=== PATIENT | female | born 1960 | race Caucasian/White ===

== ENCOUNTER → 2016-12-23 | Outpatient (CLI) | payer OTHER ==
[~2016-12-23] MED LIST: ASPIRIN EC81 MG PO; CARDIZEM CD180 MG PO; CYTOTEC200 MCG PO; DICLOFENAC SODI75 MG PO; DULCOLAX5 MG PO; FEOSOL325 MG PO; FLEXERIL 10 MG10 MG PO; GAVILYTE-C SO4000 ML PO; IMDUR ER TAB 3030 MG PO; KLONOPIN TAB 00.5 MG PO; LIPITOR TAB 2020 MG PO; LOPRESSOR 50 MG50 MG PO; LORTAB 7.5-3251 EACH PO; MILK OF MA400 MG/5 M PO; MIRALAX17 GM PO; NEURONTIN 300300 MG PO; NORVASC 5 MG TAB5 MG PO; PLAVIX 75 MG TA75 MG PO; PROTONIX 40 MG40 M1 PO; TENORMIN 50 MG50 MG PO; UNITHROID50 MCG PO; VOLTAREN EC 2525 MG PO
== END ==
LOC: HEART CORB 10:30
DX: R07.2 Precordial pain (principal); R06.02 Shortness of breath
CPT/HCPCS: 78452; A9502; J0280; J2785

== ENCOUNTER 2017-02-03 06:44 | Inpatient (IN) | payer OTHER ==
[~2017-02-03] VITALS: Ht 170.2 cm; Wt 103.2 kg
[2017-02-03] MEDS ORDERED: TENORMIN 50 MG50 MG PO (07:10)
[2017-02-03] MEDS ORDERED: NORVASC 5 MG TAB5 MG PO (07:10)
[2017-02-03] MEDS ORDERED: ASPIRIN EC81 MG PO (07:10)
[2017-02-03] MEDS ORDERED: LIPITOR TAB 2020 MG PO (07:11)
[2017-02-03] MEDS ORDERED: KLONOPIN TAB 00.5 MG PO (07:12)
[2017-02-03] MEDS ORDERED: FLEXERIL 10 MG10 MG PO (07:12)
[2017-02-03] MEDS ORDERED: CYTOTEC200 MCG PO (07:13)
[2017-02-03] MEDS ORDERED: DICLOFENAC SODI75 MG PO (07:14)
[2017-02-03] MEDS ORDERED: NEURONTIN 300300 MG PO (07:14)
[2017-02-03] MEDS ORDERED: UNITHROID50 MCG PO (07:15)
[2017-02-03] MEDS ORDERED: PROTONIX 40 MG40 M1 PO (07:15)
[2017-02-03] MEDS ORDERED: LORTAB 7.5-3251 EACH PO (07:15)
[2017-02-03] MEDS ORDERED: IMDUR ER TAB 3030 MG PO (07:15)
[2017-02-03] MEDS ORDERED: FEOSOL325 MG PO (07:16)
[2017-02-03] MEDS ORDERED: DULCOLAX5 MG PO (07:16)
[2017-02-03] MEDS ORDERED: MIRALAX17 GM PO (07:17)
[2017-02-03] MEDS ORDERED: GAVILYTE-C SO4000 ML PO (07:17)
[2017-02-03] MEDS ORDERED: MILK OF MA400 MG/5 M PO (07:17)
[2017-02-03 07:27] LABS: HEMOGLOBIN 12.3 gm/dl (12.3-15.3); RED BLOOD COUNT 4.03 M/UL (4.00-5.10); WHITE BLOOD COUNT 9.7 K/UL (4.5-11.0)
[2017-02-03 07:33] LABS: BUN/CREATININE RATIO 40 (0-10)
[2017-02-04] MEDS ORDERED: PLAVIX 75 MG TA75 MG PO (10:23)
[2017-03-17] MEDS ORDERED: VOLTAREN EC 2525 MG PO (10:38)
[2017-03-18] MEDS ORDERED: CARDIZEM CD180 MG PO (10:32)
[2017-03-18] MEDS ORDERED: LOPRESSOR 50 MG50 MG PO (10:33)
== END 2017-02-04 10:00 | disposition home or self-care (01) | DRG 247 ==
LOC: CATH 06:44 → PROG CARE 10:30 → CATH 10:33 → PROG CARE 10:33
PROVIDERS: ADMIT Internal Medicine
PROC: 027034Z Dilation of Coronary Artery, One Artery with Drug-eluting Intraluminal Device, Percutaneous Approach (ICD-10-PCS; principal; 2017-02-03)
PROC: 4A023N7 Measurement of Cardiac Sampling and Pressure, Left Heart, Percutaneous Approach (ICD-10-PCS; 2017-02-03)
PROC: B2111ZZ Fluoroscopy of Multiple Coronary Arteries using Low Osmolar Contrast (ICD-10-PCS; 2017-02-03)
PROC: B2151ZZ Fluoroscopy of Left Heart using Low Osmolar Contrast (ICD-10-PCS; 2017-02-03)
PROC: 3E033PZ Introduction of Platelet Inhibitor into Peripheral Vein, Percutaneous Approach (ICD-10-PCS; 2017-02-03)
DX: I25.118 Atherosclerotic heart disease of native coronary artery with other forms of angina pectoris (principal); I25.82 Chronic total occlusion of coronary artery; I67.1 Cerebral aneurysm, nonruptured; I10 Essential (primary) hypertension; D64.9 Anemia, unspecified; Z86.718 Personal history of other venous thrombosis and embolism; Z87.891 Personal history of nicotine dependence; Z79.82 Long term (current) use of aspirin; Z79.891 Long term (current) use of opiate analgesic; Z79.899 Other long term (current) drug therapy; Z88.0 Allergy status to penicillin
CPT/HCPCS: 36415; 80048; 82550; 82553; 84484; 85025; 85347; 85610; 85730; 93005; C1725; C1769; C1874; C1894; C9600; J0461; J1327; J1644; J2250; J3010; J7030; Q9963